=== PATIENT | female | born 1985 | race Caucasian/White ===

== ENCOUNTER 2021-04-10 15:09 | Emergency (ER) | payer OTHER ==
[~2021-04-10] VITALS: Ht 154.9 cm; Wt 90.7 kg
[2021-04-10 15:21] VITALS: BP 131/75
--- NOTE | 2021-04-10 15:23 | NUR ---
PT SENT TO LOBBY TO WAIT FOR AVAILABLE BED.
--- NOTE | 2021-04-10 16:56 | NUR ---
PT PLACED IN BED 12.
--- NOTE | 2021-04-10 16:57 | NUR ---
36 y/o F brought in from home with c/c R hand pain x 2 weeks that progressively worsen. Patient states she injured it at work, and states 9/10, painful/intermittent, non-radiating pain. 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 Patient also states she fell Saturday, however, denies LOC. States swelling to L big toe; states 7/10 pain. Patient states Ice with positive relief to toe. Patient states Tylenol prior to arrival with minor relief to hand pain. Bed locked in lowest position, side rails x 1, call light in reach. PMH/Sx/Meds: Denies NKA
[2021-04-10] MEDS ORDERED: KETOROLAC 30 MG/ML VIAL IM ONE (17:10)
[2021-04-10] MEDS ORDERED: NAPR-54 PO (17:10)
[2021-04-10 18:11] VITALS: BP 125/72
== END 2021-04-10 18:11 | disposition home or self-care (01) ==
LOC: MED 15:09
DX: S90.112A Contusion of left great toe without damage to nail, initial encounter (principal); M79.641 Pain in right hand; Z79.899 Other long term (current) drug therapy; W22.03XA Walked into furniture, initial encounter; Y93.89 Activity, other specified; Y92.89 Other specified places as the place of occurrence of the external cause; Y99.8 Other external cause status
CPT/HCPCS: 73130; 73660; 96372; 99284; J1885

== ENCOUNTER 2021-11-08 15:02 | Emergency (ER) | payer OTHER ==
[~2021-11-08] VITALS: Ht 157.5 cm; Wt 81.6 kg
[~2021-11-08 15:02] MED LIST: BENZ1LOZ98 PO; FAMO-90 PO; IBUP-2213 PO; NAPR-54 PO
[2021-11-08 16:00] VITALS: BP 130/71
[2021-11-08] MEDS ORDERED: CEPH-588 PO (16:12)
[2021-11-08] MEDS ORDERED: NAPR-54 PO (16:12)
--- NOTE | 2021-11-08 16:18 | NUR ---
NO NURSING CARE RENDERED.Patient discharged with v/s stable. Written and verbal after care instructions given and explained. Patient alert, oriented and verbalized understanding of instructions. Police with steady gait. All questions addressed prior to discharge. ID band removed. Patient advised to follow up with PMD. Rx Elle SILVA. Patient educated on indication of medication including possible reaction and side effects. Opportunity to ask questions provided and answered.
== END 2021-11-08 16:18 | disposition home or self-care (01) ==
LOC: MED 15:02
DX: T63.441A Toxic effect of venom of bees, accidental (unintentional), initial encounter (principal); L03.116 Cellulitis of left lower limb; Y92.89 Other specified places as the place of occurrence of the external cause
CPT/HCPCS: 99283

== ENCOUNTER 2023-04-09 13:03 | Emergency (ER) | payer OTHER ==
[~2023-04-09] VITALS: Ht 154.9 cm; Wt 76.2 kg
[~2023-04-09 13:03] MED LIST changes: +BENZ-301 PO; -BENZ1LOZ98 PO; +CEPH-588 PO
[2023-04-09 13:06] VITALS: BP 121/69
[2023-04-09] MEDS ORDERED: LIDOCAINE MPF 1% 10 MG/ML VIAL INJ ONE (13:45)
--- NOTE | 2023-04-09 13:45 | NUR ---
pt amb to bed 9
--- NOTE | 2023-04-09 14:45 | NUR ---
FINGER SPLINT SHORT APPLIED TO L HAND FINGER. + CMS. NON ADHERENT APPLIED
[2023-04-09 15:20] VITALS: BP 110/72
== END 2023-04-09 15:20 | disposition home or self-care (01) ==
LOC: MED 13:03
DX: S61.217A Laceration without foreign body of left little finger without damage to nail, initial encounter (principal); Z79.899 Other long term (current) drug therapy; Z79.1 Long term (current) use of non-steroidal anti-inflammatories (NSAID); Z79.2 Long term (current) use of antibiotics; W25.XXXA Contact with sharp glass, initial encounter; Y93.89 Activity, other specified; Y92.89 Other specified places as the place of occurrence of the external cause; Y99.8 Other external cause status
CPT/HCPCS: 12002; 73140; 90471; 90715; 99283; J2001

== ENCOUNTER 2023-04-11 11:15 | Emergency (ER) | payer OTHER ==
[~2023-04-11] VITALS: Ht 157.5 cm; Wt 76.2 kg
[2023-04-11 11:23] VITALS: BP 110/71
--- NOTE | 2023-04-11 15:54 | NUR ---
GAVE PT VERBAL DCI, LEFT WITHOUT RECEIVING PRINTED INSTRUCTION
--- NOTE | 2023-04-11 15:55 | NUR ---
Patient discharged with v/s stable. Written and verbal after care instructions given and explained. Patient verbalized understanding. Ambulatory with to car. All questions addressed prior to discharge. Advised to follow up with PMD.
== END 2023-04-11 15:54 | disposition home or self-care (01) ==
LOC: MED 11:15
DX: Z48.00 Encounter for change or removal of nonsurgical wound dressing (principal); Z79.899 Other long term (current) drug therapy; Z79.1 Long term (current) use of non-steroidal anti-inflammatories (NSAID); Z79.2 Long term (current) use of antibiotics
CPT/HCPCS: 99281

== ENCOUNTER 2023-04-17 07:03 | Emergency (ER) | payer OTHER ==
[~2023-04-17] VITALS: Ht 157.5 cm; Wt 76.2 kg
[2023-04-17 07:10] VITALS: BP 108/65
--- NOTE | 2023-04-17 07:10 | NUR ---
TO BED AMBULATORY
--- NOTE | 2023-04-17 07:54 | NUR ---
Patient discharged with v/s stable. Written and verbal after care instructions given. Patient verbalized understanding. Ambulatory with steady gait. All questions addressed prior to discharge. Advised to follow up with PMD.
--- NOTE | 2023-04-17 08:30 | NUR ---
The patient's care was reviewed and supervised by [facility], RN.
== END 2023-04-17 07:54 | disposition home or self-care (01) ==
LOC: MED 07:03
DX: S61.217D Laceration without foreign body of left little finger without damage to nail, subsequent encounter (principal); Z79.899 Other long term (current) drug therapy; X58.XXXD Exposure to other specified factors, subsequent encounter
CPT/HCPCS: 99281

== ENCOUNTER 2023-06-04 13:52 | Emergency (ER) | payer OTHER ==
[~2023-06-04] VITALS: Ht 157.5 cm; Wt 76.7 kg
[2023-06-04 14:03] VITALS: BP 114/73; PULSE 97; RESP 20; TEMP 97.6; O2SAT 98
[2023-06-04] MEDS ORDERED: DICYCLOMINE HCL LIQUID 10 MG/5 ML UDC PO ONE (14:25)
[2023-06-04] MEDS ORDERED: ACETAMINOPHEN EXTRA STRENGTH 500 MG TAB PO ONE (14:25)
[2023-06-04 15:30] LABS: BASOPHILS % (AUTO) 0.4 % (0.0-2.0); EOSINOPHILS % (AUTO) 0.1 % (0.0-4.0); HEMATOCRIT 36.5 % (36-48); HEMOGLOBIN 12.1 g/dL (12.0-16.0); LYMPHOCYTES # (AUTO) 2.6 K/uL (2.5-16.5); LYMPHOCYTES % (AUTO) 28.5 % (20.5-51.1); MEAN CORPUSCULAR HEMOGLOBIN 26 pg (27-31); MEAN CORPUSCULAR HGB CONC 33 g/dL (33-37); MEAN CORPUSCULAR VOLUME 77.4 fL (80-94); MONOCYTES % (AUTO) 11.5 % (1.7-9.3); NEUTROPHILS # (AUTO) 5.4 K/uL (1.8-7.7); NEUTROPHILS % (AUTO) 59.5 % (42.2-75.2); PLATELET COUNT (AUTO) 294 K/uL (140-450); RED BLOOD CELL COUNT(AUTO) 4.72 MIL/uL (4.20-5.40); RED CELL DISTRIBUTION WIDTH 15.3 % (11.6-13.7); WHITE BLOOD COUNT (AUTO) 9.1 K/uL (4.8-10.8)
[2023-06-04] MEDS ORDERED: ALUMINUM HYD/MAG/SIMETHICONE 30 ML UDC PO ONE (15:45)
[2023-06-04 15:54] LABS: ALBUMIN 3.8 g/dL (3.4-5.0); ANION GAP 16.7 (8-16); CARBON DIOXIDE 20.3 mmol/L (21-32); CREATININE 0.9 mg/dL (0.6-1.3); TOTAL BILIRUBIN 0.4 mg/dL (0.0-1.0)
[2023-06-04] MEDS ORDERED: POTASSIUM CHLORIDE 10 MEQ TABER PO ONE ×2 (16:10→17:50)
[2023-06-04] MEDS ORDERED: ALUMINUM HYD/MAG/SIMETHICONE 30 ML UDC ONE (17:11)
[2023-06-04] MEDS ORDERED: FAMO-90 PO (17:36)
[2023-06-04 17:53] VITALS: BP 118/79; PULSE 74; RESP 17
[2023-06-04 17:54] VITALS: O2SAT 98
== END 2023-06-04 17:53 | disposition home or self-care (01) ==
LOC: MED 13:52
DX: K29.70 Gastritis, unspecified, without bleeding (principal); E87.6 Hypokalemia; Z79.899 Other long term (current) drug therapy
CPT/HCPCS: 36415; 80053; 81002; 81025; 83690; 85025; 99284

== ENCOUNTER 2023-12-16 12:34 | Emergency (ER) | payer OTHER ==
[~2023-12-16] VITALS: Ht 152.4 cm; Wt 80.7 kg
[2023-12-16 12:54] VITALS: BP 108/70; PULSE 81; RESP 18; TEMP 97.1; O2SAT 100
[2023-12-16] MEDS ORDERED: IBUP-2213 PO (13:37)
[2023-12-16] MEDS ORDERED: BENZ100C6 PO (13:43)
[2023-12-16] MEDS: KETOROLAC 30 MG/ML VIAL IM ONE (13:49)
== END 2023-12-16 13:59 | disposition home or self-care (01) ==
LOC: MED 12:34
DX: S60.031A Contusion of right middle finger without damage to nail, initial encounter (principal); J20.9 Acute bronchitis, unspecified; S60.051A Contusion of right little finger without damage to nail, initial encounter; S60.041A Contusion of right ring finger without damage to nail, initial encounter; W22.8XXA Striking against or struck by other objects, initial encounter; Y93.71 Activity, boxing; Y92.89 Other specified places as the place of occurrence of the external cause; Y99.8 Other external cause status
CPT/HCPCS: 73130; 81025; 96372; 99283; J1885